=== PATIENT | female | born 1980 | race Caucasian/White ===

== ENCOUNTER 2020-09-20 16:13 | Emergency (ER) | payer OTHER ==
[~2020-09-20] VITALS: Ht 157.5 cm; Wt 90.7 kg
[2020-09-20 16:22] VITALS: BP 137/76
[2020-09-20] MEDS ORDERED: CELEXA 20 MG TA20 MG PO (16:25)
[2020-09-20] MEDS ORDERED: AMBIEN 10 MG TA10 MG PO (16:25)
[2020-09-20] MEDS ORDERED: HYDROCODON-ACE1 EAC7 PO (17:37)
== END 2020-09-20 17:59 | disposition home or self-care (01) ==
LOC: M.ERS 16:13
DX: S39.82XA Other specified injuries of lower back, initial encounter (principal); Z88.0 Allergy status to penicillin; W18.39XA Other fall on same level, initial encounter; Y93.51 Activity, roller skating (inline) and skateboarding; Y92.89 Other specified places as the place of occurrence of the external cause; Y99.8 Other external cause status

== ENCOUNTER 2020-12-14 13:38 | Emergency (ER) | payer OTHER ==
[~2020-12-14] VITALS: Ht 157.5 cm; Wt 93.0 kg
[~2020-12-14 13:38] MED LIST: AMBIEN 10 MG TA10 MG PO; CELEXA 20 MG TA20 MG PO; HYDROCODON-ACE1 EAC7 PO
[2020-12-14 16:46] VITALS: BP 135/75
== END 2020-12-14 16:46 | disposition home or self-care (01) ==
LOC: M.ERS 13:38
DX: S06.0X0A Concussion without loss of consciousness, initial encounter (principal); Z88.0 Allergy status to penicillin; W51.XXXA Accidental striking against or bumped into by another person, initial encounter; Y93.89 Activity, other specified; Y92.89 Other specified places as the place of occurrence of the external cause; Y99.8 Other external cause status

== ENCOUNTER 2021-06-25 16:33 | Emergency (ER) | payer OTHER ==
[~2021-06-25] VITALS: Ht 157.5 cm; Wt 92.5 kg
[2021-06-25] MEDS ORDERED: XANAX1 MG PO (16:44)
[2021-06-25] MEDS ORDERED: DOXYCYCLINE 10100 MG PO (19:46)
[2021-06-25] MEDS ORDERED: APAP W/CODEINE1 TA2 PO (19:46)
[2021-06-25 20:16] VITALS: BP 143/88
== END 2021-06-25 20:17 | disposition home or self-care (01) ==
LOC: M.ERS 16:33
DX: S62.633A Displaced fracture of distal phalanx of left middle finger, initial encounter for closed fracture (principal); L03.012 Cellulitis of left finger; M25.561 Pain in right knee; Z98.890 Other specified postprocedural states; Z88.0 Allergy status to penicillin; W19.XXXA Unspecified fall, initial encounter; Y93.89 Activity, other specified; Y92.89 Other specified places as the place of occurrence of the external cause; Y99.8 Other external cause status